=== PATIENT | female | born 1960 | race Caucasian/White ===

== ENCOUNTER → 2021-03-18 | Outpatient (CLI) | payer BC, MEDICARE ==
[~2021-03-18] MED LIST: ALTOPREV40 MG PO; ASPIR 8181 MG PO; ASPIR-LOW81 MG PO; ASPIRIN 325MG325 MG PO; ATORVASTATIN CA40 MG PO; B-1100 MG PO; CLOBETASOL; CLOBETASOL EMU100 GM TP; CLOPIDOGREL75 MG PO; COZAAR 50MG TAB50 MG PO; COZAAR50 MG PO; CYANOCOBAL1000 MCG/1 INJ; CYMBALTA 30 MG30 MG PO; ENOXAPARIN40 MG/0.4 SC; FERROUS SULFAT325 M2 PO; FOLIC ACID1 MG PO; HYDRALAZINE HCL10 MG PO; HYDRALAZINE HCL50 MG PO; HYDROXYZINE HCL50 MG PO; KEPPRA500 MG PO; KLOR-CON20 MEQ PO; LAMICTAL TAB 2525 MG PO; LOPRESSOR 50 MG50 MG PO; LORTAB 5-325 M1 EACH PO; LOSARTAN POTAS100 MG PO; MULTIVITAMINS1 EAC1 PO; NEURONTIN 300300 MG PO; NORVASC 5 MG TAB5 MG PO; NORVASC10 MG PO; NUDEXTA; PLAVIX 75 MG TA75 MG PO; PROAIR HFA8.5 GM INH; PROTONIX40 MG PO; SEROQUEL25 MG PO; SIMVASTATIN10 MG PO; TOPIRAMATE25 MG PO; TRAMADOL HCL50 MG PO; TYLENOL 325MG325 MG PO; VALIUM5 MG PO; VISTARIL25 MG PO; VITAMIN D PO; VITAMIN D50000 UNIT PO; WELLBUTRIN XL300 M1 PO; ZOCOR10 MG PO; ZOFRAN 4 MG TAB4 MG PO
== END ==
LOC: KOH-I 11:02
DX: M25.511 Pain in right shoulder (principal); W19.XXXA Unspecified fall, initial encounter
CPT/HCPCS: 73030

== ENCOUNTER → 2022-02-10 | Outpatient (CLI) | payer BC, MEDICARE | LOC: US 01-27 13:30 | PROVIDERS: Internal Medicine Nephrology | DX: N18.30 Chronic kidney disease, stage 3 unspecified (principal) | CPT/HCPCS: 36415; 80053 ==

== ENCOUNTER 2022-02-26 12:31 | Observation (INO) | payer BC, MEDICARE ==
[~2022-02-26] VITALS: Ht 165.1 cm; Wt 96.2 kg
[~2022-02-26 12:31] MED LIST changes: -NUDEXTA; +NUEDEXTA 20-101 EACH PO
[2022-02-26 12:53] LABS: HEMOGLOBIN 12.1 gm/dl (12.3-15.3); RED BLOOD COUNT 4.15 M/UL (4.00-5.10); WHITE BLOOD COUNT 5.4 K/UL (4.5-11.0)
[2022-02-26 13:20] LABS: BUN/CREATININE RATIO 11 (0-10)
[2022-02-26] MEDS ORDERED: KLONOPIN0.5 MG PO (18:40)
[2022-02-26] MEDS ORDERED: GABAPENTIN300 MG PO (18:42)
[2022-02-26] MEDS ORDERED: TRAMADOL HCL50 MG PO (18:45)
== END 2022-02-27 15:14 | disposition home or self-care (01) ==
LOC: ER1 12:31 → CDU 18:02 → MED SURG 4 18:02
PROVIDERS: Emergency Medicine; ADMIT Internal Medicine
DX: I11.0 Hypertensive heart disease with heart failure (principal); I50.32 Chronic diastolic (congestive) heart failure; J45.909 Unspecified asthma, uncomplicated; K27.9 Peptic ulcer, site unspecified, unspecified as acute or chronic, without hemorrhage or perforation; M19.90 Unspecified osteoarthritis, unspecified site; Z86.73 Personal history of transient ischemic attack (TIA), and cerebral infarction without residual deficits; Z95.2 Presence of prosthetic heart valve; Z79.01 Long term (current) use of anticoagulants; Z79.82 Long term (current) use of aspirin; Z79.899 Other long term (current) drug therapy
CPT/HCPCS: 70450; 70496; 70498; 70551; 71045; 80053; 82550; 82553; 84484; 85025; 85610; 85730; 92507; 92610; 93005; 96372; 97116; 97161; 97166; 99285; G0378; J1650; J2060; Q9967

== ENCOUNTER → 2022-03-14 | Outpatient (CLI) | payer BC, MEDICARE ==
[~2022-03-14] MED LIST changes: +GABAPENTIN300 MG PO; +KLONOPIN0.5 MG PO
[2022-03-14 16:46] LABS: BUN/CREATININE RATIO 13 (0-10)
[2022-03-16 10:15] LABS: CREATININE, URINE 50.6 mg/dL (Not Estab.); MICROALB/CREAT RATIO <6 (0-29)
== END ==
LOC: LAB 15:57
PROVIDERS: Internal Medicine Nephrology
DX: N18.30 Chronic kidney disease, stage 3 unspecified (principal)
CPT/HCPCS: 80053; 81001; 82043; 82570; 84156